=== PATIENT | male | born 1995 | race Caucasian/White ===

== ENCOUNTER 2016-11-17 19:44 | Emergency (ER) | payer OTHER ==
[~2016-11-17 19:44] MED LIST: Sodium Chloride 0.9% 100 ML BAG ONE
[2016-11-17] MEDS ORDERED: Ketorolac Tromethamine 30 MG/ML VIAL ONE (20:14)
[2016-11-17] MEDS ORDERED: Piperacillin/Tazobactam 3.375 GM VIAL ONE (20:14)
[2016-11-17] MEDS ORDERED: Acetaminophen/Codeine 30-300mg Tablet ONE (21:40)
[2016-11-17] MEDS ORDERED: Triple Antibiotic Oint 1 GM Packet ONE (21:50)
--- NOTE | 2016-11-17 22:23 | ERRECORD ---
[facility] EMERGENCY RECORD HPI FOOT (20:17 LHOD) CHIEF COMPLAINT: Patient presents for evaluation of swelling, to the right foot. HISTORIAN: History provided by patient. 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 NO RASH THIS MORNING OTHER THAN ATHLETE'S FOOT. ROS (20:18 LHOD) CONSTITUTIONAL: Historian denies fever. CARDIOVASCULAR: Historian denies chest pain. RESPIRATORY: Historian denies shortness of breath. GI: Historian denies abdominal pain, denies nausea, denies vomiting. MUSCULOSKELETAL: RIGHT FOOT PAIN / SWELLING. SKIN: REDNESS, SWELLING DORSUM OF RIGHT FOOT. HEMO/LYMPHATIC: Historian denies easy bruising. NOTES: All systems reviewed, negative except as described above. PAST MEDICAL HISTORY MEDICAL HISTORY: No past medical history, Flu vaccine not up to date, Tetanus immunization up to date, Pneumococcal vaccine not up to date. (19:54 CJEF) MALE SURGICAL HISTORY: DELANEY SX. (19:54 CJEF) PSYCHIATRIC HISTORY: No previous psychiatric history. (19:54 CJEF) SOCIAL HISTORY: Patient denies alcohol use, Patient denies drug use, Patient currently uses tobacco, smokes cigarettes, Patient has smoked for 5 years, Patient smokes 1/2 packs per day. (19:54 CJEF) NOTES: Nursing records reviewed. (20:23 LHOD) KNOWN ALLERGIES NONE CURRENT MEDICATIONS (19:52 CJEF) None VITAL SIGNS VITAL SIGNS: BP: 148/73, Pulse: 78, Resp: 18, Temp: 97.8 (Tympanic), Pain: 8, O2 sat: 98 on Room Air, Time: 11/17/2016 19:49. (19:49 CJEF) BP: 121/59, Pulse: 71, Resp: 18, O2 sat: 98 on Room Air, Time: 11/17/2016 20:28. (20:28 CJEF) BP: 129/65, Pulse: 75, Resp: 18, Temp: 98.1 (Tympanic), Pain: 5, O2 sat: 98 on Room Air, Time: 11/17/2016 21:19. (21:19 CJEF) BP: 125/62, Pulse: 72, Resp: 18, Pain: 5, O2 sat: 98 on Room Air, Time: 11/17/2016 22:02. (22:02 [facility]) PHYSICAL EXAM (20:20 LHOD) &a-1R&a+25V*p+0X*d0144M*c202B*c15G*c2P*p-0X&a-25V&a+1R Name: Van Arriola : 1995 M21 MedRec: [id number] AcctNum: [id number] Prepared: [facility] Nov 17, 2016 22:24 by Interface Page 1 of 3 pMD [facility] EMERGENCY RECORD CONSTITUTIONAL: Vital Signs Reviewed, Patient afebrile, Pulse normal, Blood pressure, hypertensive, Patient appears non toxic, Patient appears, in moderate pain distress, Patient alert and oriented to person, place and time. NECK: Neck exam included findings of normal range of motion, Trachea midline. RESPIRATORY CHEST: Respiratory exam included findings of no respiratory distress, Breath sounds clear. CARDIOVASCULAR: Cardiovascular exam included findings of heart rate regular rate and rhythm, Heart sounds normal. ABDOMEN MALE: Abdominal exam included findings of abdomen nontender. LOWER EXTREMITY: distal pulses intact, no calf tenderness, RIGHT FOOT----TENDER ERYTHEMATOUS RASH / ABRASION OF ENTIRE DORSUM OF RIGHT FOOT. 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 NEURO: Neuro exam findings include patient oriented to person, place and time, Speech normal. SKIN: Rash present, DORSUM OF RIGHT FOOT---TENDER , ERYTHEMA OF ENTIRE DORSUM OF FOOT. RAW APPEARING RASH / ABRASION OF FOOT. TENDER WITH ANY MOVEMENT OF FOOT. MEDICATION ADMINISTRATION SUMMARY Drug Name: *Neosporin (lly-nvq-rxodw) topical ointm, Dose Ordered: 1 units, Route: Topical, Status: Given, Time: 21:55 11/17/2016, Drug Name: Tylenol-Codeine #3, Dose Ordered: 2 tab(s), Route: Oral, Status: Given, Time: 21:45 11/17/2016, Drug Name: Zosyn, Dose Ordered: 3.375 g, Route: IV Piggy Back, Status: Given, Time: 21:20 11/17/2016, Drug Name: vancomycin intravenous, Dose Ordered: 1 g, Route: IV Piggy Back, Status: Given, Time: 20:22 11/17/2016, Drug Name: Toradol intravenous, Dose Ordered: 30 mg, Route: IV Push, Status: Given, Time: 20:22 11/17/2016, *Additional information available in notes, Detailed record available in Medication Service section. PROBLEM LIST No recorded problems DIAGNOSIS (21:48 LHOD) FINAL: PRIMARY: RIGHT FOOT DORSUM CELLULITIS. PRESCRIPTION (21:49 LHOD) Bactrim DS: TABLET : 800 mg-160 mg : ORAL : Quantity: 1 Unit: tab(s) Route: ORAL Schedule: 2 times a day Dispense: 14 May substitute. Refills: No Refills . NOTES: No Refills. Keflex: CAPSULE (HARD, SOFT, ETC.) : 500 mg : ORAL : Quantity: 1 Unit: tab(s) Route: ORAL Schedule: every 8 hours Dispense: &a-1R&a+25V*p+0X*d2398U*c202B*c15G*c2P*p-0X&a-25V&a+1R Name: Van Arriola : 1995 M21 MedRec: [id number] AcctNum: [id number] Prepared: [facility] Nov 17, 2016 22:24 by Interface Page 2 of 3 D [facility] EMERGENCY RECORD 21 May substitute. Refills: No Refills . NOTES: ^s=No Refills No Refills. Tylenol-Codeine #3: TABLET : 300 mg-30 mg : ORAL : Quantity: 1-2 Unit: tab(s) Route: ORAL Schedule: every 4 hours prn Dispense: 10 May substitute. Refills: No Refills . NOTES: ^s=^s=No Refills No Refills No Refills. DISPOSITION PATIENT: Disposition Type: Discharge, Disposition: *Discharge Home, Condition: Good. (21:48 LHOD) Patient left the department. (22:14 [facility]) Garcia: CJEF=MAR Bah, Kateryna LHOD=MD David, Kait &a-1R&a+25V*p+0X*p8243L*c202B*c15G*c2P*p-0X&a-25V&a+1R Name: Van Arriola : 1995 M21 MedRec: [id number] AcctNum: [id number] Prepared: Barbara Nov 17, 2016 22:24 by Interface Page 3 of 3 pMD MTDD
--- NOTE | 2016-11-17 22:26 | PICIS ---
[facility] EMERGENCY RECORD TRIAGE (MonNov 17, 2016 19:52 CJEF) TRIAGE NOTES: PT REPORTS THAT HIS RIGHT FOOT STARTED HURTING. PT INITIALLY THOUGHT IT STARTED A BLISTER, THOUGH THE DAY PROGRESSED HIS FOOT STARTED HURTING WORSE. PT WITH RIGHT FOOT PAIN. RIGHT FOOT WITH ABRASION TO THE TOP OF FOOT AND MILD SWELLING. PT REPORTS THAT HIS BOOT MAY HAVE "RUBBED THE FOOT RAW". 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 (MonNov 17, 2016 19:52 CJEF) PATIENT: NAME: Van Arriola, AGE: 21, GENDER: male, : Mon1995, TIME OF GREET: MonNov 17, 2016 19:45, ECODE BILLING MAP: [facility], KG WEIGHT: 99.79, , , PERSON ID: [id number], PCP: none. (MonNov 17, 2016 19:52 CJEF) Zip Code: [facility], PHONE: . (20:46) COMPLAINT: SWELLING AND PAIN TO RIGHT FOOT. (MonNov 17, 2016 19:52 CJEF) ADMISSION: URGENCY: 4 Non Urgent, ADMISSION SOURCE: Home, TRANSPORT: Walk-in, BED: TRIAGE. (MonNov 17, 2016 19:52 CJEF) ASSESSMENT: Assessment: RIGHT FOOT PAIN. (19:54 CJEF) PAIN: Patient complains of pain described as, Location RIGHT FOOT. (19:54 CJEF) IMMUNIZATIONS: Flu vaccine not up to date, Tetanus immunization up to date, Pneumococcal vaccine not up to date. (19:54 CJEF) SIRS SCORING: Heart Rate 55-109 (0), Temp range 96.8-101.1 (0), respiratory rate 12-24 (0), Mental Status altered: no (0), Infection or Suspected Infection: No. (19:54 CJEF) TRIAGE SCREENING: Patient denies suicidal ideation, Patient denies presence of domestic violence. (19:54 CJEF) PROVIDERS: TRIAGE NURSE: Kateryna Bah RN. (Barbara Nov 17, 2016 19:52 CJEF) VITAL SIGNS: BP 148/73, Pulse 78, Resp 18, Temp 97.8, (Tympanic), Pain 8, O2 Sat 98, on Room Air, Time 11/17/2016 19:49. (19:49 CJEF) KNOWN ALLERGIES NONE CURRENT MEDICATIONS (19:52 CJEF) None VITAL SIGNS VITAL SIGNS: BP: 148/73, Pulse: 78, Resp: 18, Temp: 97.8 (Tympanic), Pain: 8, O2 sat: 98 on Room Air, Time: 11/17/2016 19:49. (19:49 CJEF) BP: 121/59, Pulse: 71, Resp: 18, O2 sat: 98 on Room Air, Time: 11/17/2016 20:28. (20:28 CJEF) BP: 129/65, Pulse: 75, Resp: 18, Temp: 98.1 (Tympanic), Pain: 5, O2 sat: 98 on Room Air, Time: 11/17/2016 21:19. (21:19 CJEF) BP: 125/62, Pulse: 72, Resp: 18, Pain: 5, O2 sat: 98 on Room Air, Time: 11/17/2016 22:02. (22:02 CJEF) &a-1R&a+25V*p+0X*b6956F*c202B*c15G*c2P*p-0X&a-25V&a+1R Name: Van Arriola : 1995 M21 MedRec: [id number] AcctNum: [id number] Prepared: [facility] Nov 17, 2016 22:24 by Interface Page 1 of 9 pMD [facility] EMERGENCY RECORD NURSING ASSESSMENT: EXTREMITY LOWER (19:54 CJEF) CONSTITUTIONAL: Complex assessment performed, Patient arrives ambulatory, Gait steady, History obtained from patient, Patient appears comfortable, Patient cooperative, Patient alert, Oriented to person, place and time, Skin warm, Skin dry, Skin normal in color, Mucous membranes pink, Mucous membranes moist, Patient is well-groomed, PT REPORTS THAT HIS RIGHT FOOT STARTED HURTING. PT INITIALLY THOUGHT IT STARTED A BLISTER, THOUGH THE DAY PROGRESSED HIS FOOT STARTED HURTING WORSE. PT WITH RIGHT FOOT PAIN. RIGHT FOOT WITH ABRASION TO THE TOP OF FOOT AND MILD SWELLING. PT REPORTS THAT HIS BOOT MAY HAVE "RUBBED THE FOOT RAW". 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 PAIN: aching pain, RIGHT FOOT. LEFT LOWER EXTREMITY: Left lower extremity assessment findings include capillary refill less than 2 seconds, Skin color normal, Skin temperature warm, Distal sensation intact, Muscle tone normal. RIGHT LOWER EXTREMITY: Right lower extremity assessment findings include capillary refill less than 2 seconds, Skin color normal, Skin temperature warm, Distal sensation intact, Muscle tone normal, Notes: PT WITH REDNESS TO ENTIRE TOP OF RIGHT FOOT AND MILD SWELLING. PT WITH AN ABRASION TO ENTIRE TOP OF RIGHT FOOT. NOTES: Patient tolerated procedure well. SAFETY: Side rails up, Cart/Stretcher in lowest position, Family at bedside, Call light within reach, Hospital ID band on. NURSING PROCEDURE: BEDSIDE TESTING (20:26 CJ) PATIENT IDENTIFIER: Patient actively involved in identification process, Patient's identity verified by patient stating name, Patient's identity verified by patient stating date. GLUCOSE: Capillary blood sample, Result (mg/dl) 100. FOLLOW-UP: After procedure, results given to Dr. HERNANDEZ. SAFETY: Side rails up, Cart/Stretcher in lowest position, Family at bedside, Call light within reach, Hospital ID band on. NURSING PROCEDURE: PURSE MAKER (20:26 CJEF) PATIENT IDENTIFIER: Patient actively involved in identification process, Patient's identity verified by patient stating name, Patient's identity verified by patient stating date. PURSE MAKER: Patient placed on non-invasive blood pressure monitor, with disposable blood pressure cuff applied, Patient placed on continuous pulse oximetry, Adult/pediatric oxisensor applied. FOLLOW-UP: After procedure, alarms set and on, After procedure, patient tolerating monitoring. NOTES: Patient tolerated procedure well. SAFETY: Side rails up, Cart/Stretcher in lowest position, Family at bedside, Call light within reach, Hospital ID band on. NURSING PROCEDURE: DISCHARGE NOTE (22:13 [facility]) DISCHARGE: Patient discharged to home, ambulating without &a-1R&a+25V*p+0X*v7533T*c202B*c15G*c2P*p-0X&a-25V&a+1R Name: Van Arriola : 1995 M21 MedRec: [id number] AcctNum: [id number] Prepared: [facility] Nov 17, 2016 22:24 by Interface Page 2 of 9 pMD [facility] EMERGENCY RECORD assistance, family driving, accompanied by //partner, Summary of Care printed/ provided, Patient requested and was provided an electronic copy of Discharge Instructions, Transition record given to patient, Discharge instructions given to patient, Simple or moderate discharge teaching performed, Prescriptions given and instructions on side effects given, Medication reconciliation form given, Above person(s) verbalized understanding of discharge instructions and follow-up care, Patient treated and evaluated by physician. BELONGINGS: Belongings remain with patient. NOTES: Patient tolerated procedure well. SAFETY: Side rails up, Cart/Stretcher in lowest position, Family at bedside, Call light within reach, Hospital ID band on. NURSING PROCEDURE: IV PATIENT IDENITIFIER: Patient actively involved in identification process, Patient's identity verified by patient stating name, Patient's identity verified by patient stating date. (20:12 CJEF) IV SITE 1: IV therapy indicated for hydration, IV therapy indicated for medication administration, IV established, to the right antecubital, using an 18 gauge catheter, in one attempt, IV site prepped with CHLORAPREP, Saline lock established, Flushed with normal saline (mls): 10, Labs drawn at time of placement, labeled in the presence of the patient and sent to lab. (20:12 CJEF) FOLLOW-UP SITE 1: After procedure, sterile transparent dressing applied. (20:12 CJEF) After procedure, 2x2 dressing applied, IV discontinued, due to patient being discharged, catheter intact. (22:14 CJEF) NOTES: Patient tolerated procedure well. (20:12 CJEF) SAFETY: Side rails up, Cart/Stretcher in lowest position, Family at bedside, Call light within reach, Hospital ID band on. (20:12 CJEF) NURSING PROCEDURE: NURSE NOTES (21:20 CJEF) NURSES NOTES: Patient in no apparent distress, Patient resting quietly, Notes: PT RESTING IN BED QUIETLY WITH FAMILY AT BEDSIDE. NO DISTRESS NOTED. NURSING PROCEDURE: SPLINTING (21:46 CJEF) PATIENT IDENTIFIER: Patient actively involved in identification process, Patient's identity verified by patient stating name, Patient's identity verified by patient stating date. SPLINTING: Splinting indicated for ABRASION TO RIGHT FOOT, Crutches given with instructions, by IVANIA MANUEL, using tall crutches. NOTES: Patient tolerated procedure well. SAFETY: Side rails up, Cart/Stretcher in lowest position, Family at bedside, Call light within reach, Hospital ID band on. NURSING PROCEDURE: WOUND CARE (21:57 [facility]) &a-1R&a+25V*p+0X*g6626X*c202B*c15G*c2P*p-0X&a-25V&a+1R Name: Van Arriola : 1995 M21 MedRec: [id number] AcctNum: [id number] Prepared: [facility] Nov 17, 2016 22:24 by Interface Page 3 of 9 D [facility] EMERGENCY RECORD PATIENT IDENTIFIER: Patient actively involved in identification process, Patient's identity verified by patient stating name, Patient's identity verified by patient stating date. TIMEOUT: Prior to procedure, correct patient verified by, Correct procedure verified, Correct site verified, Correct equipment utilized. WOUND CARE: Wound care indicated to promote healing. FOLLOW-UP: After procedure, simple dressing applied, using telfa pad dressing, wrapped with 1 inch calos, Notes: WOUND COVERED WITH TRIPLE ANTIBIOTIC AND SECURED WTIH KERLEX AND COBAN. NOTES: Patient tolerated procedure well. SAFETY: Side rails up, Cart/Stretcher in lowest position, Family at bedside, Call light within reach, Hospital ID band on. ORDER DETAILS Order Name: Nany, Status: Done, Time: 20:26 11/17/2016, User: [facility], - Ordered for: MD Hernandez Lefayne, - Entered by: MD Hernandez Lefayne - Barbara Nov 17, 2016 20:00, - Quantity: 1, Order Name: chart element #1, Status: Active, Time: 21:57 11/17/2016, User: System, - Ordered for: MD Hernandez Lefayne, - Entered by: MAR Bah Cassie - Barbara Nov 17, 2016 21:57, - Quantity: 1, Order Name: chart element #4, Status: Active, Time: 21:57 11/17/2016, User: System, - Ordered for: MD Hernandez Lefayne, - Entered [facility]: [facility], 2016 21:57, - Quantity: 1, Order Name: CRUTCH ACQUISTION AND INSTRUCTION ED, Status: Done, Time: 21:49 11/17/2016, User: AD, - Ordered for: MD Hernandez Lefayne, - Entered by: MD Hernandez Lefayne - [facility] Nov 17, 2016 21:38, - Quantity: 1, Order Name: DRESSING APPLICATION/CHANGE, Status: Done, Time: 21:56 11/17/2016, User: AD, - Ordered for: MD Hernandez Lefayne, - Entered by: MD Hernandez Lefayne - [facility] Nov 17, 2016 21:47, - Quantity: 1, Order Name: SALINE LOCK, Status: Done, Time: 20:12 11/17/2016, User: AD, - Ordered for: MD Hernandez Lefayne, - Entered by: MD Hernandez Lefayne - [facility] Nov 17, 2016 20:01, - Quantity: 1. MEDICATION ADMINISTRATION SUMMARY Drug Name: *Neosporin (ofm-tme-ezjpn) topical ointm, Dose Ordered: 1 &a-1R&a+25V*p+0X*r0200F*c202B*c15G*c2P*p-0X&a-25V&a+1R Name: Van Arriola : 1995 M21 MedRec: [id number] AcctNum: [id number] Prepared: MonNov 17, 2016 22:24 by Interface Page 4 of 9 D [facility] EMERGENCY RECORD units, Route: Topical, Status: Given, Time: 21:55 11/17/2016, Drug Name: Tylenol-Codeine #3, Dose Ordered: 2 tab(s), Route: Oral, Status: Given, Time: 21:45 11/17/2016, Drug Name: Zosyn, Dose Ordered: 3.375 g, Route: IV Piggy Back, Status: Given, Time: 21:20 11/17/2016, Drug Name: vancomycin intravenous, Dose Ordered: 1 g, Route: IV Piggy Back, Status: Given, Time: 20:22 11/17/2016, Drug Name: Toradol intravenous, Dose Ordered: 30 mg, Route: IV Push, Status: Given, Time: 20:22 11/17/2016, *Additional information available in notes, Detailed record available in Medication Service section. MEDICATION SERVICE Neosporin (ack-bse-yflyg) topical ointment: Order: Neosporin (sst-guj-neshu) topical ointment (neomycin sulfate/bacitracin zinc/polymyxin B) - Dose: 1 units : Topical Notes: RIGHT FOOT DORSUM WITH GAUZE DRESSING Ordered by: Kait Hernandez MD Entered by: Kait Hernandez MD [facility] Nov 17, 2016 21:48 Documented as given by: Kateryna Bah RN [facility] Nov 17, 2016 21:55 Patient, Medication, Dose, Route and Time verified prior to administration. Amount given: 1 LUIS ANTONIO, Correct patient, time, route, dose and medication confirmed prior to administration, Patient advised of actions and side-effects prior to administration, Allergies confirmed and medications reviewed prior to administration, Patient tolerated procedure well, Advised not to ambulate without assistance, Patient in position of comfort, Side rails up, Cart in lowest position, Family at bedside. Toradol intravenous: Order: Toradol intravenous (ketorolac tromethamine) - Dose: 30 mg : IV Push Ordered by: Kait Hernandez MD Entered by: Kait Hernandez MD [facility] Nov 17, 2016 20:02 Documented as given by: Kateryna Bah RN [facility] Nov 17, 2016 20:22 Patient, Medication, Dose, Route and Time verified prior to administration. Amount given: 30mg, IV SITE #1 IVP, subsequent different medication, Slowly, Awake and alert- acceptable, Connections checked prior to administration, Line traced prior to administration, Catheter placement confirmed via flush prior to administration, IV site without signs or symptoms of infiltration during medication administration, No swelling during administration, No drainage during administration, IV flushed after administration, Correct patient, time, route, dose and medication confirmed prior to administration, Patient advised of actions and side-effects prior to administration, Allergies confirmed and medications reviewed prior to administration, Patient tolerated procedure well, Patient in position of comfort, Side rails up, Cart in lowest position, Family at bedside. : Follow Up : Response assessment performed, No signs or symptoms of allergic reaction noted, Advised not to ambulate without &a-1R&a+25V*p+0X*j9430W*c202B*c15G*c2P*p-0X&a-25V&a+1R Name: Van Arriola : 1995 M21 MedRec: [id number] AcctNum: [id number] Prepared: [facility] Nov 17, 2016 22:24 by Interface Page 5 of 9 pMD [facility] EMERGENCY RECORD assistance, Patient in position of comfort, Side rails up, Cart in lowest position, Family at bedside. (21:19 [facility]) Tylenol-Codeine #3: Order: Tylenol-Codeine #3 (acetaminophen/codeine phosphate) - Dose: 2 tab(s) : Oral Ordered by: Kait Hernandez MD Entered by: Kait Hernandez MD [facility] Nov 17, 2016 21:37 Documented as given by: Kateryna Bah RN [facility] Nov 17, 2016 21:45 Patient, Medication, Dose, Route and Time verified prior to administration. Amount given: 2 TABS, Site: Medication administered P.O., Mouth check performed after administration of medication, Patient appears Awake and alert- acceptable, Correct patient, time, route, dose and medication confirmed prior to administration, Patient advised of actions and side-effects prior to administration, Allergies confirmed and medications reviewed prior to administration, Patient tolerated procedure well, Patient in position of comfort, Side rails up, Cart in lowest position, Family at bedside. vancomycin intravenous: Order: vancomycin intravenous (vancomycin HCl) - Dose: 1 g : IV Piggy Back Ordered by: Kait Hernandez MD Entered by: Kait Hernandez MD [facility] Nov 17, 2016 20:01 Documented as given by: Kateryna Bah RN [facility] Nov 17, 2016 20:22 Patient, Medication, Dose, Route and Time verified prior to administration. Amount given: 1 G, IV SITE #1 IVPB or drip, initial infusion, IVPB mixed in: 250ml, Fluid: 0.9NS, via primary tubing, on an IV pump, Awake and alert- acceptable, Connections checked prior to administration, Line traced prior to administration, Catheter placement confirmed via flush prior to administration, IV site without signs or symptoms of infiltration during medication administration, No swelling during administration, No drainage during administration, IV flushed after administration, Correct patient, time, route, dose and medication confirmed prior to administration, Patient advised of actions and side-effects prior to administration, Allergies confirmed and medications reviewed prior to administration, Patient tolerated procedure well, Patient in position of comfort, Side rails up, Cart in lowest position, Family at bedside. : Follow Up : Response assessment performed, No signs or symptoms of allergic reaction noted, _IV SITE #1:_, Medication infusion discontinued, on Barbara Nov 17, 2016 21:19, ., Total amount infused: 250ML, Advised not to ambulate without assistance, Patient in position of comfort, Side rails up, Cart in lowest position, Family at bedside. (21:19 [facility]) Zosyn: Order: Zosyn (piperacillin sodium/tazobactam sodium) - Dose: 3.375 g : IV Piggy Back Ordered by: Kait Hernandez MD Entered by: Kait Hernandez MD [facility] Nov 17, 2016 20:01 , Acknowledged by: Kateryna Bah RN [facility] Nov 17, 2016 20:31 Documented as given by: Kateryna Bah RN [facility] Nov 17, 2016 21:20 Patient, Medication, Dose, Route and Time verified prior to &a-1R&a+25V*p+0X*v9437R*c202B*c15G*c2P*p-0X&a-25V&a+1R Name: Van Arriola : 1995 M21 MedRec: [id number] AcctNum: [id number] Prepared: [facility] Nov 17, 2016 22:24 by Interface Page 6 of 9 pMD [facility] EMERGENCY RECORD administration. Amount given: 3.375G, IV SITE #1 IVPB or drip, subsequent infusion, IVPB mixed in: 100ml, Fluid: 0.9NS, via primary tubing, on an IV pump, Awake and alert- acceptable, Connections checked prior to administration, Line traced prior to administration, Catheter placement confirmed via flush prior to administration, IV site without signs or symptoms of infiltration during medication administration, No swelling during administration, No drainage during administration, IV flushed after administration, Correct patient, time, route, dose and medication confirmed prior to administration, Patient advised of actions and side-effects prior to administration, Allergies confirmed and medications reviewed prior to administration, Patient tolerated procedure well, Patient in position of comfort, Side rails up, Cart in lowest position, Family at bedside. : Follow Up : Response assessment performed, No signs or symptoms of allergic reaction noted, _IV SITE #1:_, Medication infusion discontinued, on MonNov 17, 2016 22:13, 55 minutes, ., Total amount infused: 100ML, Advised not to ambulate without assistance, Patient in position of comfort, Side rails up, Cart in lowest position, Family at bedside. (22:13 CJEF) HPI FOOT (20:17 LHOD) CHIEF COMPLAINT: Patient presents for evaluation of swelling, to the right foot. HISTORIAN: History provided by patient. 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 NO RASH THIS MORNING OTHER THAN ATHLETE'S FOOT. ROS (20:18 LHOD) CONSTITUTIONAL: Historian denies fever. CARDIOVASCULAR: Historian denies chest pain. RESPIRATORY: Historian denies shortness of breath. GI: Historian denies abdominal pain, denies nausea, denies vomiting. MUSCULOSKELETAL: RIGHT FOOT PAIN / SWELLING. SKIN: REDNESS, SWELLING DORSUM OF RIGHT FOOT. HEMO/LYMPHATIC: Historian denies easy bruising. NOTES: All systems reviewed, negative except as described above. PAST MEDICAL HISTORY MEDICAL HISTORY: No past medical history, Flu vaccine not up to date, Tetanus immunization up to date, Pneumococcal vaccine not up to date. (19:54 CJEF) MALE SURGICAL HISTORY: DELANEY SX. (19:54 CJEF) PSYCHIATRIC HISTORY: No previous psychiatric history. (19:54 CJEF) SOCIAL HISTORY: Patient denies alcohol use, Patient denies drug use, Patient currently uses tobacco, smokes cigarettes, Patient has smoked for 5 years, Patient smokes 1/2 &a-1R&a+25V*p+0X*r8499W*c202B*c15G*c2P*p-0X&a-25V&a+1R Name: Van Arriola : 1995 M21 MedRec: [id number] AcctNum: [id number] Prepared: MonNov 17, 2016 22:24 by Interface Page 7 of 9 pMD [facility] EMERGENCY RECORD packs per day. (19:54 CJEF) NOTES: Nursing records reviewed. (20:23 LHOD) PHYSICAL EXAM (20:20 LHOD) CONSTITUTIONAL: Vital Signs Reviewed, Patient afebrile, Pulse normal, Blood pressure, hypertensive, Patient appears non toxic, Patient appears, in moderate pain distress, Patient alert and oriented to person, place and time. NECK: Neck exam included findings of normal range of motion, Trachea midline. RESPIRATORY CHEST: Respiratory exam included findings of no respiratory distress, Breath sounds clear. CARDIOVASCULAR: Cardiovascular exam included findings of heart rate regular rate and rhythm, Heart sounds normal. ABDOMEN MALE: Abdominal exam included findings of abdomen nontender. LOWER EXTREMITY: distal pulses intact, no calf tenderness, RIGHT FOOT----TENDER ERYTHEMATOUS RASH / ABRASION OF ENTIRE DORSUM OF RIGHT FOOT. NO STREAKING UP LEG, BUT ENTIRE RIGHT FOOD SCIENTIST. NEURO: Neuro exam findings include patient oriented to person, place and time, Speech normal. SKIN: Rash present, DORSUM OF RIGHT FOOT---TENDER , ERYTHEMA OF ENTIRE DORSUM OF FOOT. RAW APPEARING RASH / ABRASION OF FOOT. TENDER WITH ANY MOVEMENT OF FOOT. EVENTS TRANSFER: Triage to Emergency Triage. (MonNov 17, 2016 19:52 CJ) Emergency Triage to Main ED -03. (19:56 CJEF) Removed from Emergency Main ED -03. (22:14 CJEF) PROBLEM LIST No recorded problems DIAGNOSIS (21:48 LHOD) FINAL: PRIMARY: RIGHT FOOT DORSUM CELLULITIS. DISPOSITION PATIENT: Disposition Type: Discharge, Disposition: *Discharge Home, Condition: Good. (21:48 LHOD) Patient left the department. (22:14 CJ) INSTRUCTION (21:51 LHOD) DISCHARGE: CELLULITIS. FOLLOWUP: Follow up with Primary Care Physician in 7 days. SPECIAL: ELEVATE FOOT. KEEP FOOT CLEAN AND DRY, OPEN TO AIR WHEN HOME, OR COVERED WITH ANTIBIOTIC AND DRESSING WHEN OUTSIDE OF HOME. Tylenol or Advil for Pain &a-1R&a+25V*p+0X*z9726S*c202B*c15G*c2P*p-0X&a-25V&a+1R Name: Van Arriola : 1995 M21 MedRec: [id number] AcctNum: [id number] Prepared: Barbara Nov 17, 2016 22:24 by Interface Page 8 of 9 pMD [facility] EMERGENCY RECORD *RETURN IF WORSE Follow-up with your PCP. PRESCRIPTION (21:49 LHOD) Bactrim DS: TABLET : 800 mg-160 mg : ORAL : Quantity: 1 Unit: tab(s) Route: ORAL Schedule: 2 times a day Dispense: 14 May substitute. Refills: No Refills . NOTES: No Refills. Keflex: CAPSULE (HARD, SOFT, ETC.) : 500 mg : ORAL : Quantity: 1 Unit: tab(s) Route: ORAL Schedule: every 8 hours Dispense: 21 May substitute. Refills: No Refills . NOTES: ^s=No Refills No Refills. Tylenol-Codeine #3: TABLET : 300 mg-30 mg : ORAL : Quantity: 1-2 Unit: tab(s) Route: ORAL Schedule: every 4 hours prn Dispense: 10 May substitute. Refills: No Refills . NOTES: ^s=^s=No Refills No Refills No Refills. IMAGING *DISCHARGE INSTRUCTIONS RECEIPT: Image captured from scanner. (22:15 [facility]) Page 2 added. Image captured from scanner. (22:15 CJEF) *SUPPLY CHARGE SHEET: Image captured from scanner. (22:16 CJEF) DME: Image captured from scanner. (22:16 CJEF) ADMIN (22:21 LHOD) DIGITAL SIGNATURE: MD Hernandez Lefayne. RESULTS (20:34 LHOD) LABORATORY: Accuchek Collection DT: MonNov 17, 2016 20:30, Accuchek 100 mg/dL, Range (70-110). Garcia: CJEF=MAR Bah, Kateryna LHOD=MD Hernandez Lefayne &a-1R&a+25V*p+0X*w4991Y*c202B*c15G*c2P*p-0X&a-25V&a+1R Name: Van Arriola : 1995 M21 MedRec: [id number] AcctNum: [id number] Prepared: MonNov 17, 2016 22:24 by Interface Page 9 of 9 pMD MTDD
== END 2016-11-17 22:14 | disposition home or self-care (01) ==
LOC: MADERS 19:44
DX: L03.115 Cellulitis of right lower limb (principal); F17.210 Nicotine dependence, cigarettes, uncomplicated
CPT/HCPCS: 36416; 96365; 96367; 96375; J1885; J2543; J3370; J7050

== ENCOUNTER 2016-11-24 19:43 | Emergency (ER) | payer OTHER ==
[2016-11-24] MEDS ORDERED: Triple Antibiotic Oint 1 GM Packet ONE (21:37)
--- NOTE | 2016-11-24 21:48 | ERRECORD ---
[facility] [place] EMERGENCY RECORD HPI GENERAL (21:28 LLDO) CHIEF COMPLAINT: Patient presents for evaluation of see triage note. infected abrasion on dorsum of right foot. pt says the swelling and redness is actually a bit better, but went to work today and it got immediately worse. 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 MECHANISM OF INJURY: Mechanism of injury: see above, No alcohol use associated with this incident, No drug use associated with this incident, No domestic violence associated with this incident. LOCATION: Symptoms are generalized. QUALITY: Pain is dull in nature, described as aching, described as BURNING. SEVERITY: Maximum severity of symptoms moderate, Currently symptoms are moderate. TIME COURSE: Gradual onset of symptoms, Symptoms are worsening, since wearing shoe at work, are constant. ASSOCIATED WITH: Associated with ONLY ABOVE. EXACERBATED BY: Patient's condition exacerbated by ACTIVITY. RELIEVED BY: Patient's condition relieved by prescription medications. ROS CONSTITUTIONAL: Negative constitutional review of systems. (21:31 LLDO) EYES: Negative eye review of systems, Historian denies eye pain, denies eye redness, denies eye discharge. (21:32 LLDO) ENT: Negative ears, nose, throat review of systems, Historian denies otalgia, denies rhinorrhea, denies sinus pain, denies sore throat. (21:32 LLDO) MUSCULOSKELETAL: Negative musculoskeletal review of systems, Historian denies arthralgias, denies fall, denies injury, denies myalgias. (21:32 LLDO) SKIN: Historian reports pruritis, reports rash, reports skin changes, reports skin lesions. IN HPI. (21:31 LLDO) NEUROLOGIC: Negative neurologic review of systems, Historian denies confusion, denies focal weakness, denies mental status changes, denies sensory changes. (21:32 LLDO) ALLERGIC/IMMUNOLOGIC: Normal allergy/immunologic system review, Historian denies eczema, denies environmental allergies, denies food allergies. (21:32 LLDO) PSYCHIATRIC: Negative psychiatric review of systems, Historian denies alcohol abuse, denies anxiety, denies depression, denies drug abuse, denies hallucinations. (21:32 LLDO) NOTES: All systems reviewed, negative except as described above. (21:31 LLDO) &a-1R&a+25V*p+0X*o1208X*c202B*c15G*c2P*p-0X&a-25V&a+1R Name: Van Arriola : 1995 M21 MedRec: [id number] AcctNum: [id number] Prepared: Barbara Nov 24, 2016 21:56 by Interface Page [address] [facility] [place] EMERGENCY RECORD PAST MEDICAL HISTORY MEDICAL HISTORY: No past medical history, Flu vaccine not up to date, Tetanus immunization up to date, Pneumococcal vaccine not up to date. (19:53 CJEF) MALE SURGICAL HISTORY: DELANEY SX. (19:53 CJEF) PSYCHIATRIC HISTORY: No previous psychiatric history. (19:53 CJEF) SOCIAL HISTORY: Patient denies alcohol use, Patient denies drug use, Patient currently uses tobacco, smokes cigarettes, Patient has smoked for 5 years, Patient smokes 1/2 packs per day. (19:53 CJEF) NOTES: Nursing records reviewed, Agree with nursing records, Medication list reviewed. (21:32 LLDO) KNOWN ALLERGIES NONE CURRENT MEDICATIONS (MonNov 24, 2016 19:53 CJEF) Bactrim DS: TABLET : Strength - 800 mg-160 mg : ORAL Patient Dose: 1 tab(s) Oral 2 times a day. Keflex: CAPSULE : Strength - 500 mg : ORAL Patient Dose: 1 tab(s) Oral every 8 hours. VITAL SIGNS VITAL SIGNS: BP: 140/71, Pulse: 88, Resp: 18, Temp: 98.7 (Oral), Pain: 4, O2 sat: 97 on Room Air, Time: 11/24/2016 19:49. (19:49 CJEF) BP: 125/79, Pulse: 81, Resp: 18, Temp: 98.1 (Oral), Pain: 4, O2 sat: 97 on Room Air, Time: 11/24/2016 21:46. (21:46 CJEF) PHYSICAL EXAM CONSTITUTIONAL: Vital signs reviewed, Patient afebrile, Pulse normal, Blood pressure normal, Respiratory rate normal, Patient appears, uncomfortable, Patient appears in pain, in moderate pain distress, Patient alert and oriented to person, place and time. (21:31 LLDO) HEAD: Head exam normal, Head exam included findings of head atraumatic, normocephalic. (21:32 LLDO) EYES: Eye exam normal, Eye exam included findings of eyelids normal to inspection, Pupils equally round and reactive to light, Extraocular muscles intact. (21:32 LLDO) ENT: ENT exam normal, Ear exam normal, Nose exam normal. (21:32 LLDO) NECK: Neck exam normal, Neck exam included findings of normal range of motion, Trachea midline, no meningeal signs, no tenderness. (21:32 LLDO) BACK: Back exam normal, Back exam included findings of normal inspection, range of motion normal. (21:32 LLDO) &a-1R&a+25V*p+0X*v6394P*c202B*c15G*c2P*p-0X&a-25V&a+1R Name: Van Arriola : 1995 M21 MedRec: [id number] AcctNum: [id number] Prepared: [facility] Nov 24, 2016 21:56 by Interface Page [address] [facility] [place] EMERGENCY RECORD UPPER EXTREMITY: Upper extremity exam normal, Upper extremity exam included findings of inspection normal, Range of motion normal. (21:32 LLDO) LOWER EXTREMITY: Lower extremity exam normal, Lower extremity exam included findings of inspection normal, Range of motion normal. (21:32 LLDO) NEURO: Neuro exam normal, Neuro exam findings include patient oriented to person, place and time, Speech normal, [place] coma scale 15. (21:32 LLDO) SKIN: Skin exam included findings of skin warm, dry, and, Rash present, ABRASION(S) NOTED ABOVE. (21:31 LLDO) PSYCHIATRIC: Psychiatric exam normal, Psychiatric exam included findings of patient oriented to person place and time, Normal affect, Judgment normal. (21:32 LLDO) MEDICATION ADMINISTRATION SUMMARY Drug Name: Triple Antibiotic topical ointment, Dose Ordered: 1 rené, Route: Topical, Status: Given, Time: 21:44 11/24/2016, Detailed record available in Medication Service section. PROBLEM LIST No recorded problems DIAGNOSIS (21:35 LLDO) FINAL: PRIMARY: R foot infection. PRESCRIPTION No recorded prescriptions DISPOSITION PATIENT: Disposition Type: Discharge, Disposition: *Discharge Home. (21:35 LLDO) Patient left the department. (21:49 CJEF) Garcia: AD=MAR Bah, Kateryna LLDO=MD Adrian, Alex &a-1R&a+25V*p+0X*z3534K*c202B*c15G*c2P*p-0X&a-25V&a+1R Name: Van Arriola : 1995 M21 MedRec: [id number] AcctNum: [id number] Prepared: Barbara Nov 24, 2016 21:56 by Interface Page 3 of 3 pMD MTDD
--- NOTE | 2016-11-24 21:52 | PICIS ---
[facility] EMERGENCY RECORD TRIAGE (MonNov 24, 2016 19:53 CJEF) PATIENT: NAME: Van Arriola, AGE: 21, GENDER: male, : Mon1995, TIME OF GREET: MonNov 24, 2016 19:43, PREFERRED LANGUAGE: Upper Sorbian, ETHNICITY: Not or , ECODE BILLING MAP: [facility], SSN: [id number], Zip Code: [place], [place] WEIGHT: 100.24, PHONE: CELL, , , PERSON ID: [id number], PCP: NONE. (MonNov 24, 2016 19:53 CJEF) TRIAGE NOTES: PT WAS HERE APPROOX A WEEK AGO FOR A WOUND TO THE TOP OF THE RIGHT FOOT. PT WAS DX WITH FABIEN ESPINOZA AND WAS PLACED ON ANTIBIOTICS. PT REPORTS THAT HE HAS BEEN TAKING HIS ANTIBIOTICS PRESCRIBED. PT REPORTS THAT TODAY, THE FOOT STARTED BURNING AND ITCHING LIKE WHAT HAPPENED BEFORE, THOUGH NOT BAD PREVIOUSLY. PT STATES THAT HE JUST WANTS TO BE SURE IT IS NOT COMING BACK. PT ALSO REPORTS A NEW RASH TO BUSHRA POSTERIOR FORE ARMS THAT STARTED YESTERDAY. (MonNov 24, 2016 19:53 CJEF) COMPLAINT: WOUND RECHECK TO FOOT. (MonNov 24, 2016 19:53 CJEF) ADMISSION: URGENCY: 4 Non Urgent, ADMISSION SOURCE: Home, TRANSPORT: Walk-in, BED: TRIAGE. (MonNov 24, 2016 19:53 CJEF) ASSESSMENT: Assessment: RIGHT FOOT WOUND. (19:53 CJEF) PAIN: Patient complains of pain described as, Location RIGHT FOOT. (19:53 CJEF) IMMUNIZATIONS: Flu vaccine not up to date, Tetanus immunization up to date, Pneumococcal vaccine not up to date. (19:53 CJEF) SIRS SCORING: Heart Rate 55-109 (0), Temp range 96.8-101.1 (0), respiratory rate 12-24 (0), Mental Status altered: no (0), Infection or Suspected Infection: No. (19:53 CJEF) TRIAGE SCREENING: Patient denies suicidal ideation, Patient denies presence of domestic violence. (19:53 CJEF) PROVIDERS: TRIAGE NURSE: Kateryna Bah RN. (Barbara Nov 24, 2016 19:53 CJEF) VITAL SIGNS: BP 140/71, Pulse 88, Resp 18, Temp 98.7, (Oral), Pain 4, O2 Sat 97, on Room Air, Time 11/24/2016 19:49. (19:49 CJEF) PREVIOUS VISIT ALLERGIES: NONE. (Barbara Nov 24, 2016 19:53 CJEF) NONE. (19:53 CJEF) KNOWN ALLERGIES NONE CURRENT MEDICATIONS (Barbara Nov 24, 2016 19:53 CJEF) Bactrim DS: TABLET : Strength - 800 mg-160 mg : ORAL Patient Dose: 1 tab(s) Oral 2 times a day. Keflex: CAPSULE : Strength - 500 mg : ORAL Patient Dose: 1 tab(s) Oral every 8 hours. VITAL SIGNS VITAL SIGNS: BP: 140/71, Pulse: 88, Resp: 18, Temp: 98.7 (Oral), &a-1R&a+25V*p+0X*d8856C*c202B*c15G*c2P*p-0X&a-25V&a+1R Name: Van Arriola : 1995 M21 MedRec: [id number] AcctNum: [id number] Prepared: Barbara Nov 24, 2016 21:49 by Interface Page 1 of 6 pMD [facility] EMERGENCY RECORD Pain: 4, O2 sat: 97 on Room Air, Time: 11/24/2016 19:49. (19:49 CJEF) BP: 125/79, Pulse: 81, Resp: 18, Temp: 98.1 (Oral), Pain: 4, O2 sat: 97 on Room Air, Time: 11/24/2016 21:46. (21:46 CJEF) NURSING ASSESSMENT: SKIN (19:57 CJEF) CONSTITUTIONAL: Complex assessment performed, Patient arrives ambulatory, Gait steady, History obtained from patient, Patient appears comfortable, Patient cooperative, Patient alert, Oriented to person, place and time, Skin warm, Skin dry, Skin normal in color, Mucous membranes pink, Mucous membranes moist, Patient is well-groomed, PT WAS HERE APPROOX A WEEK AGO FOR A WOUND TO THE TOP OF THE RIGHT FOOT. PT WAS DX WITH [employer] AND WAS PLACED ON ANTIBIOTICS. PT REPORTS THAT HE HAS BEEN TAKING HIS ANTIBIOTICS PRESCRIBED. PT REPORTS THAT TODAY, THE FOOT STARTED BURNING AND ITCHING LIKE WHAT HAPPENED BEFORE, THOUGH NOT BAD PREVIOUSLY. PT STATES THAT HE JUST WANTS TO BE SURE IT IS NOT COMING BACK. PT ALSO REPORTS A NEW RASH TO BUSHRA POSTERIOR FORE ARMS THAT STARTED YESTERDAY. PAIN: burning pain, itching pain, RIGHT TOP OF FOOT. SKIN: Skin assessment findings include skin warm, Skin dry, Skin normal in color, Inspection findings include rash, red, RASH NOTED TO POSTERIOR FORE ARMS THAT STARTED YESTERDAY, Notes: PT WITH RENESS AND, WHAT APPEARS TO BE, MOISTURE-ASSOCIATED WOUND TO THE TOP OF RIGHT FOOT. NOTES: Patient tolerated procedure well. SAFETY: Side rails up, Cart/Stretcher in lowest position, Family at bedside, Call light within reach, Hospital ID band on. NURSING PROCEDURE: DISCHARGE NOTE (21:46 CJ) DISCHARGE: Patient discharged to home, ambulating without assistance, driving self, unaccompanied, Summary of Care printed/ provided, Patient requested and was provided an electronic copy of Discharge Instructions, Transition record given to patient, Discharge instructions given to patient, Simple or moderate discharge teaching performed, Medication reconciliation form given, Above person(s) verbalized understanding of discharge instructions and follow-up care, Patient treated and evaluated by physician. BELONGINGS: Belongings remain with patient. NOTES: Patient tolerated procedure well. SAFETY: Side rails up, Cart/Stretcher in lowest position, Family at bedside, Call light within reach, Hospital ID band on. NURSING PROCEDURE: WOUND CARE (21:45 [facility]) PATIENT IDENTIFIER: Patient actively involved in identification process, Patient's identity verified by patient stating name, Patient's identity verified by patient stating date. TIMEOUT: Prior to procedure, correct patient verified by, Correct procedure verified, Correct site verified, Correct equipment utilized. &a-1R&a+25V*p+0X*q0981X*c202B*c15G*c2P*p-0X&a-25V&a+1R Name: Van Arriola : 1995 M21 MedRec: [id number] AcctNum: [id number] Prepared: [facility] Nov 24, 2016 21:49 by Interface Page 2 of 6 pMD [facility] EMERGENCY RECORD WOUND CARE: Wound care indicated to promote healing, Notes: WOUND COVERED WITH TRIPLE ANTIBIOTIC OINTMENT. WOUND THEN COVERED WITH NON-ADHESIVE BANDAGE AND SECURED WITH KERLEX AND COBAN. NOTES: Patient tolerated procedure well. SAFETY: Side rails up, Cart/Stretcher in lowest position, Family at bedside, Call light within reach, Hospital ID band on. ORDER DETAILS Order Name: chart element #1, Status: Active, Time: 21:45 11/24/2016, User: System, - Ordered for: MD Campbell Lloyd, - Entered by: MAR Bah, Kateryna [facility] Nov 24, 2016 21:45, - Quantity: 1, Order Name: chart element #4, Status: Active, Time: 21:45 11/24/2016, User: System, - Ordered for: MD Campbell Lloyd, - Entered by: MAR Bah, Kateryna [facility] Nov 24, 2016 21:45, - Quantity: 1, Order Name: CLEAN WOUND, Status: Done, Time: 21:45 11/24/2016, User: [employer]an[employer], - Ordered for: MD Campbell Lloyd, - Entered by: MD Campbell Lloyd [facility] Nov 24, 2016 21:33, - Quantity: 1. MEDICATION ADMINISTRATION SUMMARY Drug Name: Triple Antibiotic topical ointment, Dose Ordered: 1 rené, Route: Topical, Status: Given, Time: 21:44 11/24/2016, Detailed record available in Medication Service section. MEDICATION SERVICE (21:44 [facility]) Triple Antibiotic topical ointment: Order: Triple Antibiotic topical ointment (neomycin sulfate/bacitracin zinc/polymyxin B) - Dose: 1 rené : Topical Schedule: Now Repeat: 3 times a day Ordered by: Alex Campbell MD Entered by: Alex Campbell MD [facility] Nov 24, 2016 21:34 Documented as given by: Kateryna Bah RN [facility] Nov 24, 2016 21:44 Patient, Medication, Dose, Route and Time verified prior to administration. Amount given: 1 rené, Correct patient, time, route, dose and medication confirmed prior to administration, Patient advised of actions and side-effects prior to administration, Allergies confirmed and medications reviewed prior to administration, Patient tolerated procedure well, Advised not to ambulate without assistance, Patient in position of comfort, Side rails up, Cart in lowest position, Family at bedside. &a-1R&a+25V*p+0X*x7784Z*c202B*c15G*c2P*p-0X&a-25V&a+1R Name: Van Arriola : 1995 M21 MedRec: [id number] AcctNum: [id number] Prepared: Barbara Nov 24, 2016 21:49 by Interface Page 3 of 6 pMD [facility] EMERGENCY RECORD HPI GENERAL (21:28 LLDO) CHIEF COMPLAINT: Patient presents for evaluation of see triage note. infected abrasion on dorsum of right foot. pt says the swelling and redness is actually a bit better, but went to work today and it got immediately worse. 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 MECHANISM OF INJURY: Mechanism of injury: see above, No alcohol use associated with this incident, No drug use associated with this incident, No domestic violence associated with this incident. LOCATION: Symptoms are generalized. QUALITY: Pain is dull in nature, described as aching, described as BURNING. SEVERITY: Maximum severity of symptoms moderate, Currently symptoms are moderate. TIME COURSE: Gradual onset of symptoms, Symptoms are worsening, since wearing shoe at work, are constant. ASSOCIATED WITH: Associated with ONLY ABOVE. EXACERBATED BY: Patient's condition exacerbated by ACTIVITY. RELIEVED BY: Patient's condition relieved by prescription medications. ROS CONSTITUTIONAL: Negative constitutional review of systems. (21:31 LLDO) EYES: Negative eye review of systems, Historian denies eye pain, denies eye redness, denies eye discharge. (21:32 LLDO) ENT: Negative ears, nose, throat review of systems, Historian denies otalgia, denies rhinorrhea, denies sinus pain, denies sore throat. (21:32 LLDO) MUSCULOSKELETAL: Negative musculoskeletal review of systems, Historian denies arthralgias, denies fall, denies injury, denies myalgias. (21:32 LLDO) SKIN: Historian reports pruritis, reports rash, reports skin changes, reports skin lesions. IN HPI. (21:31 LLDO) NEUROLOGIC: Negative neurologic review of systems, Historian denies confusion, denies focal weakness, denies mental status changes, denies sensory changes. (21:32 LLDO) ALLERGIC/IMMUNOLOGIC: Normal allergy/immunologic system review, Historian denies eczema, denies environmental allergies, denies food allergies. (21:32 LLDO) PSYCHIATRIC: Negative psychiatric review of systems, Historian denies alcohol abuse, denies anxiety, denies depression, denies drug abuse, denies hallucinations. (21:32 LLDO) NOTES: All systems reviewed, negative except as described above. (21:31 LLDO) &a-1R&a+25V*p+0X*n9421E*c202B*c15G*c2P*p-0X&a-25V&a+1R Name: Van Arriola : 1995 M21 MedRec: [id number] AcctNum: [id number] Prepared: Barbara Nov 24, 2016 21:49 by Interface Page 4 of 6 pMD [facility] EMERGENCY RECORD PAST MEDICAL HISTORY MEDICAL HISTORY: No past medical history, Flu vaccine not up to date, Tetanus immunization up to date, Pneumococcal vaccine not up to date. (19:53 CJEF) MALE SURGICAL HISTORY: DELANEY SX. (19:53 CJEF) PSYCHIATRIC HISTORY: No previous psychiatric history. (19:53 CJEF) SOCIAL HISTORY: Patient denies alcohol use, Patient denies drug use, Patient currently uses tobacco, smokes cigarettes, Patient has smoked for 5 years, Patient smokes 1/2 packs per day. (19:53 CJEF) NOTES: Nursing records reviewed, Agree with nursing records, Medication list reviewed. (21:32 LLDO) PHYSICAL EXAM CONSTITUTIONAL: Vital signs reviewed, Patient afebrile, Pulse normal, Blood pressure normal, Respiratory rate normal, Patient appears, uncomfortable, Patient appears in pain, in moderate pain distress, Patient alert and oriented to person, place and time. (21:31 LLDO) HEAD: Head exam normal, Head exam included findings of head atraumatic, normocephalic. (21:32 LLDO) EYES: Eye exam normal, Eye exam included findings of eyelids normal to inspection, Pupils equally round and reactive to light, Extraocular muscles intact. (21:32 LLDO) ENT: ENT exam normal, Ear exam normal, Nose exam normal. (21:32 LLDO) NECK: Neck exam normal, Neck exam included findings of normal range of motion, Trachea midline, no meningeal signs, no tenderness. (21:32 LLDO) BACK: Back exam normal, Back exam included findings of normal inspection, range of motion normal. (21:32 LLDO) UPPER EXTREMITY: Upper extremity exam normal, Upper extremity exam included findings of inspection normal, Range of motion normal. (21:32 LLDO) LOWER EXTREMITY: Lower extremity exam normal, Lower extremity exam included findings of inspection normal, Range of motion normal. (21:32 LLDO) NEURO: Neuro exam normal, Neuro exam findings include patient oriented to person, place and time, Speech normal, Neri coma scale 15. (21:32 LLDO) SKIN: Skin exam included findings of skin warm, dry, and, Rash present, ABRASION(S) NOTED ABOVE. (21:31 LLDO) PSYCHIATRIC: Psychiatric exam normal, Psychiatric exam included findings of patient oriented to person place and time, Normal affect, Judgment normal. (21:32 LLDO) EVENTS &a-1R&a+25V*p+0X*r2015C*c202B*c15G*c2P*p-0X&a-25V&a+1R Name: Van Arriola : 1995 M21 MedRec: [id number] AcctNum: [id number] Prepared: MonNov 24, 2016 21:49 by Interface Page 5 of 6 D [facility] EMERGENCY RECORD TRANSFER: Triage to Emergency Triage. (MonNov 24, 2016 19:53 CJEF) Emergency Triage to Main ED -05. (19:53 CJEF) Removed from Emergency Main ED -05. (21:49 CJEF) PROBLEM LIST No recorded problems DIAGNOSIS (21:35 LLDO) FINAL: PRIMARY: R foot infection. DISPOSITION PATIENT: Disposition Type: Discharge, Disposition: *Discharge Home. (21:35 LLDO) Patient left the department. (21:49 CJEF) INSTRUCTION (21:36 LLDO) DISCHARGE: CELLULITIS. FOLLOWUP: Follow up with Primary Care Physician in 7-10 days. SPECIAL: Follow-up with your PCP. PRESCRIPTION No recorded prescriptions ADMIN (21:37 LLDO) DIGITAL SIGNATURE: MD Campbell Lloyd. Garcia: CJEF=MAR Bah, Kateryna LLDO=MD Campbell Lloyd &a-1R&a+25V*p+0X*h5445O*c202B*c15G*c2P*p-0X&a-25V&a+1R Name: Van Arriola : 1995 1 MedRec: [id number] AcctNum: [id number] Prepared: MonNov 24, 2016 21:49 by Interface Page 6 of 6 pMD [facility] MEDICATION RECONCILIATION You were seen in the Emergency Department on: MonNov 24, 2016 KNOWN ALLERGIES NONE MEDICATIONS GIVEN WHILE IN THE EMERGENCY DEPARTMENT Triple Antibiotic topical ointment (neomycin sulfate/bacitracin zinc/polymyxin B) - Dose: 1 application : Topical HOME MEDICATIONS CONTINUE PRESCRIBED Bactrim DS : TABLET : Strength - 800 mg-160 mg : ORAL Continue as prescribed Patient had been takin tab(s) Oral 2 times a day. Keflex : CAPSULE : Strength - 500 mg : ORAL Continue as prescribed Patient had been takin tab(s) Oral every 8 hours. Notes from the emergency department Reviewed with family Reviewed with patient &a-1R&a+25V*p+0X*v6509N*c202B*c15G*c2P*p-0X&a-25V&a+1R Name: Van Arriola : 1995 M21 MedRec: [id number] AcctNum: [id number] Prepared: MonNov 24, 2016 21:49 by Interface pMD MONICA
--- NOTE | 2016-11-24 21:57 | PICIS ---
[facility] EMERGENCY RECORD TRIAGE (MonNov 24, 2016 19:53 CJEF) PATIENT: NAME: Van Arriola, AGE: 21, GENDER: male, : Mon1995, TIME OF GREET: MonNov 24, 2016 19:43, PREFERRED LANGUAGE: German, ETHNICITY: Not or , ECODE BILLING MAP: [facility], SSN: [id number], Zip Code: [facility], KG WEIGHT: 100.24, PHONE: CELL, , , PERSON ID: [id number], PCP: NONE. (MonNov 24, 2016 19:53 CJEF) TRIAGE NOTES: PT WAS HERE APPROOX A WEEK AGO FOR A WOUND TO THE TOP OF THE RIGHT FOOT. PT WAS DX WITH FABIEN ESPINOZA AND WAS PLACED ON ANTIBIOTICS. PT REPORTS THAT HE HAS BEEN TAKING HIS ANTIBIOTICS PRESCRIBED. PT REPORTS THAT TODAY, THE FOOT STARTED BURNING AND ITCHING LIKE WHAT HAPPENED BEFORE, THOUGH NOT BAD PREVIOUSLY. PT STATES THAT HE JUST WANTS TO BE SURE IT IS NOT COMING BACK. PT ALSO REPORTS A NEW RASH TO BUSHRA POSTERIOR FORE ARMS THAT STARTED YESTERDAY. (MonNov 24, 2016 19:53 CJEF) COMPLAINT: WOUND RECHECK TO FOOT. (MonNov 24, 2016 19:53 CJEF) ADMISSION: URGENCY: 4 Non Urgent, ADMISSION SOURCE: Home, TRANSPORT: Walk-in, BED: TRIAGE. (MonNov 24, 2016 19:53 CJEF) ASSESSMENT: Assessment: RIGHT FOOT WOUND. (19:53 CJEF) PAIN: Patient complains of pain described as, Location RIGHT FOOT. (19:53 CJEF) IMMUNIZATIONS: Flu vaccine not up to date, Tetanus immunization up to date, Pneumococcal vaccine not up to date. (19:53 CJEF) SIRS SCORING: Heart Rate 55-109 (0), Temp range 96.8-101.1 (0), respiratory rate 12-24 (0), Mental Status altered: no (0), Infection or Suspected Infection: No. (19:53 CJEF) TRIAGE SCREENING: Patient denies suicidal ideation, Patient denies presence of domestic violence. (19:53 CJEF) PROVIDERS: TRIAGE NURSE: Kateryna Bah RN. (Barbara Nov 24, 2016 19:53 CJEF) VITAL SIGNS: BP 140/71, Pulse 88, Resp 18, Temp 98.7, (Oral), Pain 4, O2 Sat 97, on Room Air, Time 11/24/2016 19:49. (19:49 CJEF) PREVIOUS VISIT ALLERGIES: NONE. (Barbara Nov 24, 2016 19:53 CJEF) NONE. (19:53 CJEF) KNOWN ALLERGIES NONE CURRENT MEDICATIONS (Barbara Nov 24, 2016 19:53 CJEF) Bactrim DS: TABLET : Strength - 800 mg-160 mg : ORAL Patient Dose: 1 tab(s) Oral 2 times a day. Keflex: CAPSULE : Strength - 500 mg : ORAL Patient Dose: 1 tab(s) Oral every 8 hours. VITAL SIGNS VITAL SIGNS: BP: 140/71, Pulse: 88, Resp: 18, Temp: 98.7 (Oral), &a-1R&a+25V*p+0X*u2937U*c202B*c15G*c2P*p-0X&a-25V&a+1R Name: Van Arriola : 1995 M21 MedRec: [id number] AcctNum: [id number] Prepared: Barbara Nov 24, 2016 22:02 by Interface Page 1 of 6 pMD [facility] EMERGENCY RECORD Pain: 4, O2 sat: 97 on Room Air, Time: 11/24/2016 19:49. (19:49 CJEF) BP: 125/79, Pulse: 81, Resp: 18, Temp: 98.1 (Oral), Pain: 4, O2 sat: 97 on Room Air, Time: 11/24/2016 21:46. (21:46 CJEF) NURSING ASSESSMENT: SKIN (19:57 CJEF) CONSTITUTIONAL: Complex assessment performed, Patient arrives ambulatory, Gait steady, History obtained from patient, Patient appears comfortable, Patient cooperative, Patient alert, Oriented to person, place and time, Skin warm, Skin dry, Skin normal in color, Mucous membranes pink, Mucous membranes moist, Patient is well-groomed, PT WAS HERE APPROOX A WEEK AGO FOR A WOUND TO THE TOP OF THE RIGHT FOOT. PT WAS DX WITH [employer] AND WAS PLACED ON ANTIBIOTICS. PT REPORTS THAT HE HAS BEEN TAKING HIS ANTIBIOTICS PRESCRIBED. PT REPORTS THAT TODAY, THE FOOT STARTED BURNING AND ITCHING LIKE WHAT HAPPENED BEFORE, THOUGH NOT BAD PREVIOUSLY. PT STATES THAT HE JUST WANTS TO BE SURE IT IS NOT COMING BACK. PT ALSO REPORTS A NEW RASH TO BUSHRA POSTERIOR FORE ARMS THAT STARTED YESTERDAY. PAIN: burning pain, itching pain, RIGHT TOP OF FOOT. SKIN: Skin assessment findings include skin warm, Skin dry, Skin normal in color, Inspection findings include rash, red, RASH NOTED TO POSTERIOR FORE ARMS THAT STARTED YESTERDAY, Notes: PT WITH RENESS AND, WHAT APPEARS TO BE, MOISTURE-ASSOCIATED WOUND TO THE TOP OF RIGHT FOOT. NOTES: Patient tolerated procedure well. SAFETY: Side rails up, Cart/Stretcher in lowest position, Family at bedside, Call light within reach, Hospital ID band on. NURSING PROCEDURE: DISCHARGE NOTE (21:46 CJ) DISCHARGE: Patient discharged to home, ambulating without assistance, driving self, unaccompanied, Summary of Care printed/ provided, Patient requested and was provided an electronic copy of Discharge Instructions, Transition record given to patient, Discharge instructions given to patient, Simple or moderate discharge teaching performed, Medication reconciliation form given, Above person(s) verbalized understanding of discharge instructions and follow-up care, Patient treated and evaluated by physician. BELONGINGS: Belongings remain with patient. NOTES: Patient tolerated procedure well. SAFETY: Side rails up, Cart/Stretcher in lowest position, Family at bedside, Call light within reach, Hospital ID band on. NURSING PROCEDURE: WOUND CARE (21:45 [facility]) PATIENT IDENTIFIER: Patient actively involved in identification process, Patient's identity verified by patient stating name, Patient's identity verified by patient stating date. TIMEOUT: Prior to procedure, correct patient verified by, Correct procedure verified, Correct site verified, Correct equipment utilized. &a-1R&a+25V*p+0X*z2899G*c202B*c15G*c2P*p-0X&a-25V&a+1R Name: Van Arriola : 1995 M21 MedRec: [id number] AcctNum: [id number] Prepared: Barbara Nov 24, 2016 22:02 by Interface Page 2 of 6 pMD [facility] EMERGENCY RECORD WOUND CARE: Wound care indicated to promote healing, Notes: WOUND COVERED WITH TRIPLE ANTIBIOTIC OINTMENT. WOUND THEN COVERED WITH NON-ADHESIVE BANDAGE AND SECURED WITH KERLEX AND COBAN. NOTES: Patient tolerated procedure well. SAFETY: Side rails up, Cart/Stretcher in lowest position, Family at bedside, Call light within reach, Hospital ID band on. ORDER DETAILS Order Name: chart element #1, Status: Active, Time: 21:45 11/24/2016, User: System, - Ordered for: MD Campbell Lloyd, - Entered by: MAR Bah, Kateryna [facility] Nov 24, 2016 21:45, - Quantity: 1, Order Name: chart element #4, Status: Active, Time: 21:45 11/24/2016, User: System, - Ordered for: MD Campbell Lloyd, - Entered by: MAR Bah, Kateryna [facility] Nov 24, 2016 21:45, - Quantity: 1, Order Name: CLEAN WOUND, Status: Done, Time: 21:45 11/24/2016, User: [employer], - Ordered for: MD Campbell Lloyd, - Entered by: MD Campbell Lloyd [facility] Nov 24, 2016 21:33, - Quantity: 1. MEDICATION ADMINISTRATION SUMMARY Drug Name: Triple Antibiotic topical ointment, Dose Ordered: 1 rené, Route: Topical, Status: Given, Time: 21:44 11/24/2016, Detailed record available in Medication Service section. MEDICATION SERVICE (21:44 [facility]) Triple Antibiotic topical ointment: Order: Triple Antibiotic topical ointment (neomycin sulfate/bacitracin zinc/polymyxin B) - Dose: 1 rené : Topical Schedule: Now Repeat: 3 times a day Ordered by: Alex Campbell MD Entered by: Alex Campbell MD [facility] Nov 24, 2016 21:34 Documented as given by: Kateryna Bah RN [facility] Nov 24, 2016 21:44 Patient, Medication, Dose, Route and Time verified prior to administration. Amount given: 1 rené, Correct patient, time, route, dose and medication confirmed prior to administration, Patient advised of actions and side-effects prior to administration, Allergies confirmed and medications reviewed prior to administration, Patient tolerated procedure well, Advised not to ambulate without assistance, Patient in position of comfort, Side rails up, Cart in lowest position, Family at bedside. &a-1R&a+25V*p+0X*f7518I*c202B*c15G*c2P*p-0X&a-25V&a+1R Name: Van Arriola : 1995 M21 MedRec: [id number] AcctNum: [id number] Prepared: Barbara Nov 24, 2016 22:02 by Interface Page 3 of 6 pMD [facility] EMERGENCY RECORD HPI GENERAL (21:28 LLDO) CHIEF COMPLAINT: Patient presents for evaluation of see triage note. infected abrasion on dorsum of right foot. pt says the swelling and redness is actually a bit better, but went to work today and it got immediately worse. HISTORIAN: History provided by patient, pt is a [employer]. MECHANISM OF INJURY: Mechanism of injury: see above, No alcohol use associated with this incident, No drug use associated with this incident, No domestic violence associated with this incident. LOCATION: Symptoms are generalized. QUALITY: Pain is dull in nature, described as aching, described as BURNING. SEVERITY: Maximum severity of symptoms moderate, Currently symptoms are moderate. TIME COURSE: Gradual onset of symptoms, Symptoms are worsening, since wearing shoe at work, are constant. ASSOCIATED WITH: Associated with ONLY ABOVE. EXACERBATED BY: Patient's condition exacerbated by ACTIVITY. RELIEVED BY: Patient's condition relieved by prescription medications. ROS CONSTITUTIONAL: Negative constitutional review of systems. (21:31 LLDO) EYES: Negative eye review of systems, Historian denies eye pain, denies eye redness, denies eye discharge. (21:32 LLDO) ENT: Negative ears, nose, throat review of systems, Historian denies otalgia, denies rhinorrhea, denies sinus pain, denies sore throat. (21:32 LLDO) MUSCULOSKELETAL: Negative musculoskeletal review of systems, Historian denies arthralgias, denies fall, denies injury, denies myalgias. (21:32 LLDO) SKIN: Historian reports pruritis, reports rash, reports skin changes, reports skin lesions. IN HPI. (21:31 LLDO) NEUROLOGIC: Negative neurologic review of systems, Historian denies confusion, denies focal weakness, denies mental status changes, denies sensory changes. (21:32 LLDO) ALLERGIC/IMMUNOLOGIC: Normal allergy/immunologic system review, Historian denies eczema, denies environmental allergies, denies food allergies. (21:32 LLDO) PSYCHIATRIC: Negative psychiatric review of systems, Historian denies alcohol abuse, denies anxiety, denies depression, denies drug abuse, denies hallucinations. (21:32 LLDO) NOTES: All systems reviewed, negative except as described above. (21:31 LLDO) &a-1R&a+25V*p+0X*s8122C*c202B*c15G*c2P*p-0X&a-25V&a+1R Name: Van Arriola : 1995 M21 MedRec: [id number] AcctNum: [id number] Prepared: Barbara Nov 24, 2016 22:02 by Interface Page 4 of 6 pMD [facility] EMERGENCY RECORD PAST MEDICAL HISTORY MEDICAL HISTORY: No past medical history, Flu vaccine not up to date, Tetanus immunization up to date, Pneumococcal vaccine not up to date. (19:53 CJEF) MALE SURGICAL HISTORY: DELANEY SX. (19:53 CJEF) PSYCHIATRIC HISTORY: No previous psychiatric history. (19:53 CJEF) SOCIAL HISTORY: Patient denies alcohol use, Patient denies drug use, Patient currently uses tobacco, smokes cigarettes, Patient has smoked for 5 years, Patient smokes 1/2 packs per day. (19:53 CJEF) NOTES: Nursing records reviewed, Agree with nursing records, Medication list reviewed. (21:32 LLDO) PHYSICAL EXAM CONSTITUTIONAL: Vital signs reviewed, Patient afebrile, Pulse normal, Blood pressure normal, Respiratory rate normal, Patient appears, uncomfortable, Patient appears in pain, in moderate pain distress, Patient alert and oriented to person, place and time. (21:31 LLDO) HEAD: Head exam normal, Head exam included findings of head atraumatic, normocephalic. (21:32 LLDO) EYES: Eye exam normal, Eye exam included findings of eyelids normal to inspection, Pupils equally round and reactive to light, Extraocular muscles intact. (21:32 LLDO) ENT: ENT exam normal, Ear exam normal, Nose exam normal. (21:32 LLDO) NECK: Neck exam normal, Neck exam included findings of normal range of motion, Trachea midline, no meningeal signs, no tenderness. (21:32 LLDO) BACK: Back exam normal, Back exam included findings of normal inspection, range of motion normal. (21:32 LLDO) UPPER EXTREMITY: Upper extremity exam normal, Upper extremity exam included findings of inspection normal, Range of motion normal. (21:32 LLDO) LOWER EXTREMITY: Lower extremity exam normal, Lower extremity exam included findings of inspection normal, Range of motion normal. (21:32 LLDO) NEURO: Neuro exam normal, Neuro exam findings include patient oriented to person, place and time, Speech normal, Neri coma scale 15. (21:32 LLDO) SKIN: Skin exam included findings of skin warm, dry, and, Rash present, ABRASION(S) NOTED ABOVE. (21:31 LLDO) PSYCHIATRIC: Psychiatric exam normal, Psychiatric exam included findings of patient oriented to person place and time, Normal affect, Judgment normal. (21:32 LLDO) EVENTS &a-1R&a+25V*p+0X*e0431U*c202B*c15G*c2P*p-0X&a-25V&a+1R Name: Vna Arriola : 1995 M21 MedRec: [id number] AcctNum: [id number] Prepared: MonNov 24, 2016 22:02 by Interface Page 5 of 6 D [facility] EMERGENCY RECORD TRANSFER: Triage to Emergency Triage. (MonNov 24, 2016 19:53 CJEF) Emergency Triage to Main ED -05. (19:53 CJEF) Removed from Emergency Main ED -05. (21:49 CJEF) PROBLEM LIST No recorded problems DIAGNOSIS (21:35 LLDO) FINAL: PRIMARY: R foot infection. DISPOSITION PATIENT: Disposition Type: Discharge, Disposition: *Discharge Home. (21:35 LLDO) Patient left the department. (21:49 CJEF) INSTRUCTION (21:36 LLDO) DISCHARGE: CELLULITIS. FOLLOWUP: Follow up with Primary Care Physician in 7-10 days. SPECIAL: Follow-up with your PCP. PRESCRIPTION No recorded prescriptions IMAGING (21:50 CJEF) *DISCHARGE INSTRUCTIONS RECEIPT: Image captured from scanner. *SUPPLY CHARGE SHEET: Image captured from scanner. ADMIN (21:37 LLDO) DIGITAL SIGNATURE: MD Campbell Lloyd. Garcia: AD=MAR Bah, Kateryna ROSALES=MD Adrian, Alex &a-1R&a+25V*p+0X*p2995D*c202B*c15G*c2P*p-0X&a-25V&a+1R Name: Van Arriola : 1995 [facility] [place] MedRec: [id number] AcctNum: [id number] Prepared: MonNov 24, 2016 22:02 by Interface Page 6 of 6 pMD [facility] MEDICATION RECONCILIATION You were seen in the Emergency Department on: MonNov 24, 2016 KNOWN ALLERGIES NONE MEDICATIONS GIVEN WHILE IN THE EMERGENCY DEPARTMENT Triple Antibiotic topical ointment (neomycin sulfate/bacitracin zinc/polymyxin B) - Dose: 1 application : Topical HOME MEDICATIONS CONTINUE PRESCRIBED Bactrim DS : TABLET : Strength - 800 mg-160 mg : ORAL Continue as prescribed Patient had been takin tab(s) Oral 2 times a day. Keflex : CAPSULE : Strength - 500 mg : ORAL Continue as prescribed Patient had been takin tab(s) Oral every 8 hours. Notes from the emergency department Reviewed with family Reviewed with patient &a-1R&a+25V*p+0X*y9932S*c202B*c15G*c2P*p-0X&a-25V&a+1R Name: Van Arriola : 1995 1 MedRec: [id number] AcctNum: [id number] Prepared: MonNov 24, 2016 22:02 by Interface pMD MONICA
== END 2016-11-24 21:52 | disposition home or self-care (01) ==
LOC: MADERS 19:43
DX: S90.811A Abrasion, right foot, initial encounter (principal); L08.9 Local infection of the skin and subcutaneous tissue, unspecified; F17.210 Nicotine dependence, cigarettes, uncomplicated; X58.XXXA Exposure to other specified factors, initial encounter
CPT/HCPCS: 99283